=== PATIENT | female | born 1990 | race Two or more races ===

== ENCOUNTER 2024-06-19 17:59 | Observation (INO) | payer MEDICAID, SELFPAY ==
[2024-06-19] VITALS (7 sets, daily range): BP systolic 110–128; BP diastolic 68–83; PULSE 79–98; RESP 16–18; TEMP 37.1–37.4; O2SAT 96–99; BMI 26.3
--- NOTE | 2024-06-19 18:27 | PD.EDRME ---
Rapid Medical Screening Exam RME Arrival date/time: 06/19/24 17:59 Chief Complaint: Abdominal Pain Time Seen by Provider: 06/19/24 18:08 Vital signs: Vital Signs Temperature 99.4 F 06/19/24 18:24 Pulse Rate 94 06/19/24 18:24 Respiratory Rate 16 06/19/24 18:24 Blood Pressure 121/83 06/19/24 18:24 Pulse Oximetry (%) 96 06/19/24 18:24 Oxygen Delivery Method Room Air 06/19/24 18:24 E Narrative: Epigastric pain, nausea x4 days. Patient also reports congestion, cough, body aches.
--- NOTE | 2024-06-19 18:28 | XR_ITS ---
Examination: PA chest single view Technique: Upright PA chest single view Exam date and time: June 2024 1833 hrs. Indications: Coughing wheezing beginning 4 days ago. Findings: Early pneumonia left lower lobe Normal heart size Right lung clear Impression: Early pneumonia left lower lobe
--- NOTE | 2024-06-19 18:29 | XR_ITS ---
Examination: Abdomen sonogram, Limited Date and time of exam: June 19, 2024 1840 hrs. Indications: Right upper abdominal pain epigastric pain with nausea vomiting beginning 4 days ago Technique: Real-time villanueva scale transabdominal sonographic images of the upper abdomen obtained. Findings: Multiple gallstones Gallbladder wall is thickened 0.5 cm Common bile duct 0.3 cm Pancreatic head 2.2 cm Liver 14.2 cm fatty infiltration smooth contour no focal liver lesions Normal hepatopedal portal venous flow Patent IVC Impression: Acute calculus cholecystitis Normal common bile duct
[2024-06-19 18:51] LABS: Basophils # (Auto) 0.1 Thou/mm3 (0.0-0.2); Basophils % (Auto) 0 % (0-2.5); Eosinophils # (Auto) 0.1 Thou/mm3 (0.0-0.5); Eosinophils % (Auto) 0 % (0-10); Hematocrit 41.1 % (36.0-46.0); Hemoglobin 14.6 g/dL (12.0-16.0); Immature Granulocytes % (Auto) 1 % (0-0); Immature Granulocytes Auto 0.12 Thou/mm3 (0.00-0.00); Lymphocytes # (Auto) 2.8 Thou/mm3 (1.0-4.8); Lymphocytes % (Auto) 11 % (10-50); Mean Corpuscular HGB Conc 35.5 g/dl (31.0-37.0); Mean Corpuscular Hemoglobin 29.1 pg (25.0-35.0); Mean Corpuscular Volume 82 fL (80-100); Monocytes # (Auto) 1.9 Thou/mm3 (0.0-0.8); Monocytes % (Auto) 8 % (0-12); Neutrophils # (Auto) 20.5 Thou/mm3 (1.8-7.7); Neutrophils % (Auto) 81 % (37-80); Nucleated Red Blood Cell % 0 /100 WBC (0); Platelet Count 308 Thou/mm3 (140-440); Red Blood Count 5.02 Miln/mm3 (4.00-5.20); White Blood Count 25.4 Thou/mm3 (3.6-11.0)
[2024-06-19 19:12] LABS: Alanine Aminotransferase 48 U/L (10-49); Albumin, Serum 4.9 gm/dL (3.5-5.0); Albumin/Globulin Ratio 1.4 (1.2-2.2); Alkaline Phosphatase 60 U/L (46-116); Anion Gap 12 (7-16); Aspartate Amino Transferase 19 U/L (0-34); BUN/Creatinine Ratio 12 Ratio (12-20); Bilirubin,Total 0.6 mg/dL (0.3-1.2); Blood Urea Nitrogen 7 mg/dL (9-23); Calcium 9.7 mg/dL (8.3-10.6); Calcium (Corrected) 9.7 mg/dL (8.5-10.1); Carbon Dioxide 25.5 mMol/L (20.0-31.0); Chloride 98 mMol/L (98-107); Creatinine (Component) 0.6 mg/dL (0.6-1.3); Estimated Creatinine Clearance 118.3 mL/min (>60); Globulin 3.4 gm/dL (2.3-3.5); Glucose 100 mg/dL (74-106); Lipase 24 U/L (12-53); Osmolality,Calculated 268 (275-295); Potassium 3.3 mMol/L (3.4-5.1); Sodium 135 mMol/L (136-145); Total Protein 8.3 gm/dL (5.7-8.2); eGFR > 60 See Note
[2024-06-19 21:10] LABS: Collection Type, Urine Clean Catch
--- NOTE | 2024-06-19 21:28 | EDNOTE_ITS ---
ED General RME/HPI General Chief complaint: Abdominal Pain Stated complaint: ABD PAIN Time Seen by Provider: 06/19/24 18:08 Arrival date/time: 06/19/24 17:59 RME / HPI RME / HPI narrative: [facility] complaint: Epigastric pain, nausea x4 days, fevers and food intolerance HPI: Patient is a 33-year-old female with no significant past medical history, history of normal vaginal deliveries without complications s/p IUD, who presented to the ED with acute onset abdominal pain. Her pain started on Monday in the right upper quadrant and progressed to epigastric region, with significant nausea and multiple episodes of yellow nonbilious nonbloody vomitus. She describes her pain as 10 out of 10, dull achy in severity and constant. She is unable to assess if pain worsens with food but does endorse worsening with movement. Patient also had subjective fevers and bodyaches since Monday and took Tylenol for it. She has never experienced the symptoms in the past, and is otherwise in fairly good health and active. present at bedside, endorses significant intolerance of food and even liquids. Her last bowel movement was over 48 hours ago, likely due to lack of food consumption. Medication list: None Past surgical history: None Allergies: NKFDA Social history: Marital?Status:? Tobacco?Use:?Denies ETOH?Use:?Denies Drug?Note:?Denies Social?History?Note:?Lives?at home with? and kids Family history: Negative for gastric/colon cancer, no sudden cardiac . L Severity: severe Severity scale (1-10): 10 Quality: aching and dull Related Data Allergies Allergy/AdvReac Type Severity Reaction Status Date / Time No Known Allergies Unknown Uncoded 08/13/15 07:53 Review of Systems Review of Systems Narrative Review of Systems: GENERAL: Denies fevers/chills or diaphoresis. HEENT: Denies headache or visual/hearing changes. Denies nasal discharge. NEURO: Denies unusual weakness or difficulty speaking. CARDIO: Denies chest pain or palpitations. PULM: Denies SOB, coughing, or wheezing. GI: Epigastric abdominal pain, N/V, no C/D. Reports having BMs URO: Denies burning/itching/pain/urinary changes. 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 MSK/EXT/SKIN: Denies joint/skeletal/muscle pain, issues/changes in upper or lower extremities, itchiness, or superficial pain. PSYCH: Cooperative, pleasant mood & affect. The rest of the review of systems is otherwise negative. ED Exam Narrative Physical exam: Constitutional Alert, oriented x3 and in discomfort HEENT Vision grossly intact. Patent nares. Trachea midline. Respiratory Chest normal on inspection and clear to auscultation bilaterally. Cardiovascular S1 and S2 audible, RRR. No murmurs or carotid bruit. No gross JVD. Abdominal Soft, +Conte's sign, severely tender to palpation in RUQ and epigastric region. BS + Genitourinary No bladder tenderness, no flank pain. Normal to palpation. Musculoskeletal Extremities tone within normal limits. No LE edema. Neurological CN II - XII grossly intact. Extremity motor and sensation grossly intact. Skin Warm, dry and intact. No apparent lesions. Psychiatric Patient has a good affect, is cooperative. Course Quality Measures none Orders Category Date Time Status Bedside COVID-19 Antigen Test NOW Care 06/19/24 18:28 Active Bedside Influenza A&B Antigen Test NOW Care 06/19/24 18:29 Completed Consult to General Surgery Stat Cons 06/19/24 21:10 Ordered CXR [XR chest 1V] Stat Exams 06/19/24 18:28 Completed US gall bladder Stat Exams 06/19/24 18:29 Completed CBC Stat Lab 06/19/24 18:37 Completed CMP [Comprehensive Metabolic Panel] Stat Lab 06/19/24 18:37 Completed HCG Qualitative,Urine Stat Lab 06/19/24 21:02 Completed Lipase Stat Lab 06/19/24 18:37 Completed Magnesium Stat Lab 06/19/24 18:37 Completed PTT [Partial Thromboplastin Time] Stat Lab 06/19/24 18:37 Completed Phosphorous Stat Lab 06/19/24 18:37 Completed Prothrombin Time with INR Stat Lab 06/19/24 18:37 Completed UA [Urinalysis] Stat Lab 06/19/24 21:02 Completed Ampicillin/Sulbac Inj [Unasyn Inj] 3 gm Med 06/19/24 21:09 Discontinued Sodium Chloride 0.9% (P) [NS 0.9% mini bag] 100 ml IV X1 Ketorolac Inj [Toradol Inj] Med 06/19/24 21:05 Discontinued 15 mg IVP Q2HR PRN Ketorolac Inj [Toradol Inj] Med 06/19/24 21:25 Discontinued 15 mg IVP X1 ONE Morphine Inj Med 06/19/24 21:05 Discontinued 2 mg IVP Q1H PRN Ondansetron Inj [Zofran Inj] Med 06/19/24 20:58 Discontinued 4 mg IV Q6H PRN Ondansetron Inj [Zofran Inj] Med 06/19/24 21:25 Discontinued 4 mg IV X1 ONE POT PHOS 15 mMol in NS 250 ML [Pot Phos 15 mMol in NS Med 06/19/24 20:59 Discontinued 250 ml] 15 mmol in 250 ml IV X1 Sodium Chloride 0.9% 1000 ml [Ns] 1,000 ml Med 06/19/24 20:59 Discontinued IV 125 mls/hr Vital Signs Vital signs: Vital Signs Temperature 99.4 F 06/19/24 18:24 Pulse Rate 94 06/19/24 18:24 Respiratory Rate 16 06/19/24 18:24 Blood Pressure 121/83 06/19/24 18:24 Pulse Oximetry (%) 96 06/19/24 18:24 Oxygen Delivery Method Room Air 06/19/24 18:24 [facility] Patient data External records reviewed:: None Clinical information provided by:: patient and spouse Social determinants that could affect healthcare access:: none Patient has the following chronic illnesses:: None How is presenting disease/condition affected by chronic disease/condition?: no chronic disease Evaluation data The following diagnostics were reviewed and interpreted by me:: lab results, radiology exam(s), EKG tracing(s) and other (specify) Lab and/or radiology exams considered but not ordered:: MRI Interpretation Summary: Acute CALCULOUS cholecystitis Medications Medications considered but not ordered:: Zosyn Medication administrations:: Medication Administration History Piperacillin/Tazobactam/Dextrose (Zosyn) 3.375 gm in 50 mls @ 12.5 mls/hr IV Q8H [facility] Stop: 06/27/24 06:59 Ketorolac Tromethamine (Ketorolac Inj 30 Mg/Ml Vial) 30 mg IVP Q6HR PRN PRN Reason: PAIN SCALE 4-6 (Moderate Stop: 06/24/24 21:53 Last Admin: 06/20/24 02:20 Dose: 30 mg Documented By: Ondansetron HCl (Ondansetron Inj 2 Mg/Ml Inj 2 Ml) 4 mg IV Q4HR PRN; Protocol PRN Reason: NAUSEA OR VOMITING Stop: 07/19/24 21:59 Discontinued Medications Sodium Chloride (Ns) 1,000 mls @ 125 mls/hr IV .Q8H ONE Stop: 06/20/24 04:58 Last Admin: 06/19/24 22:01 Dose: Not Given Documented By: JAILENE Non-Admin Reason: Discontinued Potassium Phosphate (Pot Phos 15 Mmol In Ns 250 Ml) 15 mmol in 250 mls @ 62.5 mls/hr IV X1 ONE Stop: 06/20/24 00:58 Last Admin: 06/19/24 21:57 Dose: Not Given Documented By: JAILENE Non-Admin Reason: Discontinued Ampicillin Sodium/Sulbactam (Sodium 3 gm/ Sodium Chloride) 100 mls @ 200 mls/hr IV X1 ONE Stop: 06/19/24 21:10 Last Admin: 06/19/24 21:58 Dose: Not Given Documented By: JAILENE Non-Admin Reason: Discontinued Piperacillin/Tazobactam/Dextrose (Zosyn) 50 mls @ 100 mls/hr IV X1 ONE Stop: 06/19/24 22:23 Last Infusion: 06/19/24 22:58 Dose: Infused Documented By: Admin: 06/19/24 22:16 Dose: 100 mls/hr Documented By: JAILENE Sodium Chloride (Ns) 500 mls @ 999 mls/hr IV .Q31M ONE Stop: 06/19/24 22:29 Last Infusion: 06/19/24 22:59 Dose: Infused Documented By: Admin: 06/19/24 22:15 Dose: 999 mls/hr Documented By: JAILENE Ketorolac Tromethamine (Ketorolac Inj 30 Mg/Ml Vial) 15 mg IVP Q2HR PRN PRN Reason: pain 3-6 Stop: 06/24/24 21:59 Ketorolac Tromethamine (Ketorolac Inj 30 Mg/Ml Vial) 15 mg IVP X1 ONE Stop: 06/19/24 21:26 Last Admin: 06/19/24 22:14 Dose: 15 mg Documented By: JAILENE Morphine Sulfate (Morphine Sulf Inj 10 Mg/Ml Vial) 2 mg IVP Q1H PRN PRN Reason: pain 7-10 Stop: 06/24/24 21:14 Ondansetron HCl (Ondansetron Inj 2 Mg/Ml Inj 2 Ml) 4 mg IV Q6H PRN; Protocol PRN Reason: nausea or vomiting Stop: 07/19/24 20:59 Ondansetron HCl (Ondansetron Inj 2 Mg/Ml Inj 2 Ml) 4 mg IV X1 ONE; Protocol Stop: 06/19/24 21:26 Last Admin: 06/19/24 22:14 Dose: 4 mg Documented By: KD Continue Consultations Consultation(s) initiated? (list below): Yes Consultation #1 (Physician, Specialty, Details): 9:[address] Ross is consulted for possible laparascopic shaye intervention in the morning. Diagnosis Differential Diagnosis ED Complaint MDM: SBO ruled out Most likely diagnosis given after review of the tests above:: Acute CALCULOUS cholecystitis Admission Indicated Admission indicated?: indicated Explain why admission is indicated or not indicated:: Acute CALCULOUS cholecystitis , on IV antibiotics Plan : Gen surg consulted, will evaluate in the morning. Keep pt NPO after midnight. Admission Request Was there a request for admission?: Yes Disposition Plan Disposition Plan: Admit Medical Decision Making Differential Diagnosis Differential Diagnosis: SBO ruled out Lab Data 06/19/24 18:37 06/19/24 18:37 Labs: Lab Results 06/19/24 06/19/24 Range/Units 18:37 21:02 WBC 25.4 H (3.6-11.0) Thou/mm3 RBC 5.02 (4.00-5.20) Miln/mm3 Hgb 14.6 (12.0-16.0) g/dL Hct 41.1 (36.0-46.0) % MCV 82 (80-100) fL MCH 29.1 (25.0-35.0) pg MCHC 35.5 (31.0-37.0) g/dl RDW Std Deviation 38.0 (36.4-46.3) fL Plt Count 308 (140-440) Thou/mm3 Neut % (Auto) 81 H (37-80) % Lymph % (Auto) 11 (10-50) % [place] % (Auto) 8 (0-12) % Eos % (Auto) 0 (0-10) % Baso % (Auto) 0 (0-2.5) % Neut # (Auto) 20.5 H (1.8-7.7) Thou/mm3 Lymph # (Auto) 2.8 (1.0-4.8) Thou/mm3 [place] # (Auto) 1.9 H (0.0-0.8) Thou/mm3 Eos # (Auto) 0.1 (0.0-0.5) Thou/mm3 Baso # (Auto) 0.1 (0.0-0.2) Thou/mm3 Immature Gran # (Auto) 0.12 H (0.00-0.00) Thou/mm3 Absolute Nucleated RBC 0.00 (0.00-0.00) Thou/mm3 Immature Gran % 1 H (0-0) % Nucleated RBC % 0 (0) /100 WBC PT 11.5 (9.0-12.2) Seconds INR 1.1 (0.9-1.3) APTT 32.9 (22.0-36.0) Seconds Sodium 135 L (136-145) mMol/L Potassium 3.3 L (3.4-5.1) mMol/L Chloride 98 (98-107) mMol/L Carbon Dioxide 25.5 (20.0-31.0) mMol/L Anion Gap 12 (7-16) BUN 7 L (9-23) mg/dL Creatinine 0.6 (0.6-1.3) mg/dL Estim Creat Clear Calc 118.3 (>60) mL/min eGFR > 60 (60 - ) See Note BUN/Creatinine Ratio 12 (12-20) Ratio Glucose 100 (74-106) mg/dL Calculated Osmolality 268 L (275-295) Calcium 9.7 (8.3-10.6) mg/dL Corrected Calcium 9.7 (8.5-10.1) mg/dL Phosphorus 2.7 (2.4-5.1) mg/dL Magnesium 2.1 (1.6-2.6) mg/dL Total Bilirubin 0.6 (0.3-1.2) mg/dL AST 19 (0-34) U/L ALT 48 (10-49) U/L Alkaline Phosphatase 60 (46-116) U/L Total Protein 8.3 H (5.7-8.2) gm/dL Albumin 4.9 (3.5-5.0) gm/dL Globulin 3.4 (2.3-3.5) gm/dL Albumin/Globulin Ratio 1.4 (1.2-2.2) Lipase 24 (12-53) U/L Ur Collection Type Clean Catch Urine Color Yellow (Lt Yel-Yel) Urine Clarity Hazy (Clear/Hazy) Urine pH 6.0 (5.0-7.0) Ur Specific [place] 1.035 (1.001-1.035) Urine Protein 1+ A (Neg - Trace) Urine Glucose (UA) Negative (Negative) Urine Ketones 4+ A (Negative) Urine Blood 2+ A (Negative) Urine Nitrite Negative (Negative) Urine Bilirubin Negative (Negative) Urine Urobilinogen (Auto) 2.0 (0.0-1.0) mg/dL Ur Leukocyte Esterase Positive (Negative) Urine RBC 17 H (0-3) /hpf Urine WBC 7 H (0-5) /hpf Ur Squamous Epith Cells 13 H (0-5) /hpf Urine Bacteria Rare (None) Urine HCG, Qual Negative Discharge Plan Plan Patient Disposition: Admit Acute Care w/in Hospital Patient condition on transfer: Stable Problem List Clinical Impression: Acute cholecystitis due to biliary calculus
[2024-06-19 21:37] LABS: Magnesium 2.1 mg/dL (1.6-2.6); Phosphorous 2.7 mg/dL (2.4-5.1)
[2024-06-19 21:47] LABS: Bacteria,Urine Rare; Bilirubin,Urine Negative (Negative); Blood,Urine 2+ (Negative); Color,Urine Yellow (Lt Yel-Yel); Glucose, Urine Negative (Negative); Ketones,Urine 4+ (Negative); Leukocyte Esterase,Urine Positive (Negative); Nitrite,Urine Negative (Negative); Protein,Urine 1+ (Neg - Trace); RBC,Urine 17 /hpf (0-3); Specific Gravity,Urine 1.035 (1.001-1.035); Squamous Epithelial Cell,Urine 13 /hpf (0-5); WBC,Urine 7 /hpf (0-5)
[2024-06-19 21:50] LABS: Clarity,Urine Hazy (Clear/Hazy)
[2024-06-19 21:58] LABS: HCG Qualitative,Urine Negative
--- NOTE | 2024-06-19 22:09 | EKG_ITS ---
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
[2024-06-19] MEDS: ONDANSETRON INJ 2 MG/ML INJ 2 ML 4 MG IV (22:14)
[2024-06-19] MEDS: KETOROLAC INJ 30 MG/ML VIAL 15 MG IVP (22:14)
[2024-06-19] MEDS: SODIUM CHLORIDE 0.9% 500 ML 500 ML 999 ML IV (22:15)
[2024-06-19] MEDS: PIPER/TAZO 3.375 GM 50 ML IV (22:16)
[2024-06-19 22:59] LABS: INR 1.1 (0.9-1.3); Partial Thromboplastin Time 32.9 Seconds (22.0-36.0); Prothrombin Time 11.5 Seconds (9.0-12.2)
[2024-06-20] VITALS (14 sets, daily range): BP systolic 100–127; BP diastolic 65–85; PULSE 66–93; RESP 15–95; TEMP 36.1–36.7; O2SAT 95–100; BMI 26.3; BMI 26.8
--- NOTE | 2024-06-20 00:32 | PC.NURSE ---
REPORT CALLED TO GISSELLE GALINDO. ALL QUESTIONS ASKED AND ANSWERED. PATIENT TRANSFERRED TO FLOOR BY STAFF NO DISTRESS NOTED AT TRANSFER. PATIENT REMAINS ON ROOM AIR.
--- NOTE | 2024-06-20 00:35 | PC.NURSE ---
report received from Sunita PITTS.
[2024-06-20] MEDS: KETOROLAC INJ 30 MG/ML VIAL IVP ×2 (02:20→19:19)
[2024-06-20] MEDS: PIPER/TAZO 3.375 GM 3.375 GM/50 ML BAG IV ×3 (08:04→22:22)
[2024-06-20] MEDS: MORPHINE SULF INJ 10 MG/ML VIAL 3 MG IVP (08:04)
--- NOTE | 2024-06-20 08:49 | ESHP_ITS ---
HPI Date of Admission 06/19/24 21:54 Chief Complaint Chief Complaint: Patient is admitted with a diagnosis of acute cholecystitis and cholelithiasis HPI History of present elevated the patient was in her usual health until Monday when she started the pain in the epigastric region associated with vomiting. She could not eat. She could not sleep. But she thought it is flu and did not go to the doctor. 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 She has noticed fever and chills. She has had a normal bowel movement on Monday but nothing afterwards. She denies any such pain in the past even though she might of had some occasional indigestion. Patient denies any history of gallstones in the family. She is and has 2 children. Past Medical History Past Medical History CARDIAC: Negative Congestive Heart Failure RESPIRATORY: Negative Chronic Obstructive Pulmonary Disease (COPD) GENITOURINARY: Negative Renal Disease ENDOCRINE: Negative Diabetes Mellitus Type 1 or Diabetes Mellitus Type 2 Social History SMOKING STATUS: Never smoker SECOND HAND EXPOSURE: No Meds Home Medications and Allergies Allergies Allergy/AdvReac Type Severity Reaction Status Date / Time No Known Allergies Unknown Uncoded 08/13/15 07:53 Exam Vital Signs Temp Pulse Resp BP Pulse Ox O2 Del Method 97.3 F 80 16 106/68 99 Room Air 06/20/24 08:00 06/20/24 08:00 06/20/24 08:00 06/20/24 08:00 06/20/24 08:00 06/20/24 08:00 Narrative Exam Physical examination revealed a thin built female who is 5 foot 2 inches tall weighing 146 pounds Constitutional Constitutional: severe distress Routine Abdominal Exam Comments: Abdominal examination revealed epigastric tenderness but and right upper quadrant tenderness with a positive Conte sign Results Results: Laboratory Laboratory Narrative: Patient's laboratory workup showed leukocytosis of 25,000. Liver enzymes are normal. Results: Imaging Imaging narrative: Patient had ultrasound of the gallbladder which showed gallstones with acute cholecystitis Assessment & Plan Additional Assessment Additional comments: Impression: Acute calculus cholecystitis Plan Plan: Advised the patient to undergo laparoscopic cholecystectomy. Since she is 4 days after the pain started it may be difficult to do the laparoscopic approach. She may end up requiring open approach. Other complications and risks like trocar related injury to the bowel and common bile duct injury requiring further surgery in the tertiary [facility] was explained to her and the . Patient also was told about the need for open cholecystectomy in case the laparoscopic approach fails. She is agreeable to proceed with the surgery. Quality Measures Quality Measures none
[2024-06-20] MEDS: SODIUM CHLORIDE 0.9% 1000 ML 1,000 ML 125 ML IV ×2 (09:33→16:19)
[2024-06-20] MEDS: ONDANSETRON INJ 2 MG/ML INJ 2 ML 4 MG IV ×2 (10:41→13:04)
[2024-06-20] MEDS: ACETAMINOPHEN IVPB 1,000 MG/100 ML VIAL 250 MG IV ×3 (10:41→21:57)
--- NOTE | 2024-06-20 12:49 | ESOP_ITS ---
Date of Procedure 06/20/24 Pre Op Diagnosis Acute calculus cholecystitis Post Op Diagnosis Same Procedure Laparoscopic cholecystectomy Findings Patient was found to have distended and thickened gallbladder wall with multiple large stones Procedure Description After endotracheal anesthesia was given the patient was placed in supine position and the abdomen was prepped with chloroprep solution and draped in a sterile manner. After time out was performed I injected a few cc of of half percent Marcaine with epinephrine below the umbilicus and I made an incision for about 3 cm in length. The fascia was cleaned and Veress needle was inserted to create a pneumoperitoneum up to 15 mmHg. Then introduced a 12 mm trocar and a 10 mm camera through the fascia and I inspected the intra-abdominal organs as well as the gallbladder and the liver. Another 5 mm trocar was inserted in the epigastric region under direct vision after injecting some local anesthesia. At this time the patient was kept in reverse Trendelenburg position with the left lateral tilt. The third 5 mm trocar was inserted over the mid axillary line under direct vision and a Jose and Yesenia grasper was used to hold the fundus of the gallbladder. The retraction was carried out by the entry level administrative assistant moving the fundus of the gallbladder towards the right shoulder of the patient to create enough traction. I placed a another 5 mm trocar in the midaxillary line just lateral to the rectus muscle under direct vision. I used a fenestrated grasper to retract the neck of the gallbladder laterally towards the patient's right hip. The Calot's triangle was exposed and I achieved the critical view of safety as follows: I dissected out the fatty tissue from the hepatocystic triangle and cleared this area. I also dissected inferior and posterior to the gallbladder to identify the cystic duct and the gallbladder wall. Then superiorly I dissected along the cystic plate up to lower one third third of the gallbladder to lift the gallbladder from the liver. At this time I confirmed that only 2 structures entering the gallbladder were cystic artery and the cystic duct. The common duct was seen distally but no dissection was carried out around the duct. I did not see any need for operative cholangiogram in this patient. The cystic duct was clipped doubly and then divided and cystic artery was similarly dealt with. Then the gallbladder was removed from the liver bed using Harmonic tisha to control the small blood vessels as the dissection proceeded. Then the gallbladder was from the liver bed completely and delivered through the umbilical port using an Endopouch. The liver bed was coagulated with cautery to obtain satisfactory hemostasis. The trocars were pulled out from the abdominal cavity and the fascia at the umbilical incision was closed with interrupted 0 Ethibond. Subcutaneous tissues was closed with 3- 0 chromic and injected a few cc of half percent Marcaine with epinephrine and the skin was closed with interrupted 4-0 Monocryl subcuticular stitches at all the trocar sites. Dressing was applied with 2 x 2 and Tegaderm. Patient tolerated the procedure well and returned to recovery room in stable condition. Anesthesia GETA Pathology / specimen Other IVF Infused 400 Estimated Blood Loss 40 Condition Stable Disposition PACU Surgeon Tara Ross MD Surgical Staff Operation Date: 06/20/24 11:45 Case Staff Anesthesiologist: Steven Buitrago RN First Assistant: Ann Marie Davis
--- NOTE | 2024-06-20 12:57 | SUR.PHASEI ---
pt received from OR in recovery bay 5. pt asleep but responds to voice, breathing unlabored on oxymask 8l. v/s stable. pt dressing to abd x4 cdi. report received from Dr. Buitrago and Stephani PITTS.
--- NOTE | 2024-06-20 13:12 | PC.SS ---
Patient is alert/oriented. She resides with her family. Patient was admitted for cholecystitis. She is independent with ADL's. Patient states she's npo for surgery at 11a.m. Patient follows with [facility]. She does walk in only. Not established with a p.c.p. Her alt designated decision maker is her partner, Truong. Patient pharmacy: [facility]. Family will provide transportation home. D/c plan: home
[2024-06-20] MEDS: PROMETHAZINE INJ 12.5 MG in SODIUM CHLORIDE 0.9% 50 ML 2.5 MG IV (13:23)
--- NOTE | 2024-06-20 14:05 | SUR.PHASEI ---
pt awake and alert, breathing unlabored on room air. v/s stable. pt dressing to abd x4 cdi. report called to shantelle leong. pt will be transferred to room at this time.
--- NOTE | 2024-06-20 16:32 | PC.NURSE ---
Patient to surgery for laparoscopic cholecystectomy via gurney around 11:15 AM.
--- NOTE | 2024-06-20 16:32 | PC.NURSE ---
Patient back to med surg unit after surgery via gurney around 14:20PM.
[2024-06-21] MEDS: SODIUM CHLORIDE 0.9% 1000 ML 1,000 ML 125 ML IV (01:27)
[2024-06-21] MEDS: KETOROLAC INJ 30 MG/ML VIAL IVP ×2 (01:29→11:11)
[2024-06-21 01:35] VITALS: RESP 97
[2024-06-21 04:00] VITALS: BP 105/78; PULSE 71; RESP 18; TEMP 36.4; O2SAT 96
[2024-06-21] MEDS: ACETAMINOPHEN IVPB 1,000 MG/100 ML VIAL 250 MG IV (04:19)
[2024-06-21 05:45] LABS: Basophils % (Auto) 0 % (0-2.5); Eosinophils % (Auto) 0 % (0-10); Hematocrit 33.7 % (36.0-46.0); Hemoglobin 11.9 g/dL (12.0-16.0); Immature Granulocytes % (Auto) 1 % (0-0); Immature Granulocytes Auto 0.11 Thou/mm3 (0.00-0.00); Lymphocytes # (Auto) 1.6 Thou/mm3 (1.0-4.8); Lymphocytes % (Auto) 10 % (10-50); Mean Corpuscular HGB Conc 35.3 g/dl (31.0-37.0); Mean Corpuscular Hemoglobin 29.2 pg (25.0-35.0); Mean Corpuscular Volume 83 fL (80-100); Monocytes # (Auto) 0.8 Thou/mm3 (0.0-0.8); Monocytes % (Auto) 5 % (0-12); Neutrophils # (Auto) 13.4 Thou/mm3 (1.8-7.7); Neutrophils % (Auto) 84 % (37-80); Nucleated Red Blood Cell % 0 /100 WBC (0); Platelet Count 252 Thou/mm3 (140-440); RDW Standard Deviation 38.9 fL (36.4-46.3); Red Blood Count 4.07 Miln/mm3 (4.00-5.20); White Blood Count 15.9 Thou/mm3 (3.6-11.0)
[2024-06-21] MEDS: PIPER/TAZO 3.375 GM 3.375 GM/50 ML BAG IV (06:09)
[2024-06-21 07:46] VITALS: PULSE 82; RESP 16; RESP 97
[2024-06-21 08:00] VITALS: BP 96/56; PULSE 69; RESP 16; TEMP 36.2; O2SAT 97
--- NOTE | 2024-06-21 10:05 | ESPR_ITS ---
Documentation for date of: 06/21/24 Subjective Subjective Brief History: History of present elevated the patient was in her usual health until Monday when she started the pain in the epigastric region associated with vomiting. She could not eat. She could not sleep. But she thought it is flu and did not go to the doctor. 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 She has noticed fever and chills. She has had a normal bowel movement on Monday but nothing afterwards. She denies any such pain in the past even though she might of had some occasional indigestion. Patient denies any history of gallstones in the family. She is and has 2 children. Narrative: Patient is doing well and tolerating diet. She has passed flatus and had a bowel movement Exam Vital Signs Temp Pulse Resp BP Pulse Ox O2 Del Method O2 Flow Rate 97.1 F 69 16 96/56 L 97 Room Air 8 06/21/24 08:00 06/21/24 08:00 06/21/24 08:00 06/21/24 08:00 06/21/24 08:00 06/21/24 08:00 06/20/24 13:05 Her vital signs are normal Routine Abdominal Exam Comments: Abdominal examination is negative Results Results: Laboratory Laboratory Narrative: WBC is down to 15,000 Assessment & Plan Assessment Additional comments: Impression: Stable postoperative course following laparoscopic cholecystectomy Plan Plan: We shall discharge patient today. Procedures Procedures Laparoscopic cholecystectomy
[2024-06-21 12:00] VITALS: BP 115/78; PULSE 78; RESP 17; TEMP 36.2; O2SAT 95
== END 2024-06-21 13:41 | disposition home or self-care (01) ==
LOC: SERX 21:41 → SERHOLD 22:21 → S3SX 06-20 07:07 → SERHOLD 06-20 09:00
PROVIDERS: Physician Assistant; Student in an Organized Health Care Education/Training Program; Admitting Provider Surgery; Emergency Provider Emergency Medicine; PCP Physician Assistant; Visit Provider Surgery
PROC: 0FT44ZZ Resection of Gallbladder, Percutaneous Endoscopic Approach (ICD-10-PCS; CPT 47562; principal; 2024-06-20 11:30)
DX: K80.12 Calculus of gallbladder with acute and chronic cholecystitis without obstruction (principal)
CPT/HCPCS: 47562; 36415; 71045; 76705; 80053; 81001; 81025; 83690; 83735; 84100; 85025; 85610; 85730; 87400; 87811; 93005; 96361; 96365; 96366; 99285; A4217; A4649; G0378; J0131; J1100; J1885; J2250; J2270; J2405; J2543; J2550; J2704; J3010; J3490; J7030; J7040

== ENCOUNTER 2025-02-26 16:42 | Emergency (ER) | payer MEDICAID, SELFPAY ==
[2025-02-26 17:24] VITALS: BP 126/75; PULSE 72; RESP 16; TEMP 36.9; O2SAT 95; BMI 27.4
[2025-02-26] MEDS: IBUPROFEN TAB 600 MG TABLET PO (17:47)
[2025-02-26] MEDS: LIDOCAINE HCL 1% 20 ML VIAL INFL (18:00)
--- NOTE | 2025-02-26 18:10 | XR_ITS ---
Examination: Toes, right foot fifth digit Technique: Toes AP oblique lateral 3 views right foot fifth digit Date and time of exam: February 26, 2025, 1814 hrs. Indications: Dislocation at the interphalangeal joint right fifth digit on plain films 02/26/2025 1608 hrs. Post reduction films Findings: Significant improvement in alignment at the interphalangeal joint fifth digit No fracture Impression: Significant improvement in alignment at the interphalangeal joint fifth digit
--- NOTE | 2025-02-26 18:11 | EDNOTE_ITS ---
Lower Extremity Injury RME/HPI General Chief Complaint: Extremity Injury, Lower Stated Complaint: RIGHT PINKY TOE DISLOCATION Time Seen by Provider: 02/26/25 17:58 Arrival date/time: 02/26/25 16:42 RME / HPI RME / HPI Narrative: 34-year-old female patient was sent to us by PCP for possible subluxation right fifth to PIP area. Patient accidentally stabbed her right pinky toe with hard object last night. Went to PCP and x-ray was done and showed possible dislocation subluxation PIP 5th toe. Patient complained of pain described as dull ache severity mild. Patient is ambulatory. Related Data Previous Rx's ?Medication ?Instructions ?Recorded hydrocodone 5 mg-acetaminophen 325 1 tab PO Q6H #20 ta bs 06/21/24 mg tablet Allergies Allergy/AdvReac Type Severity Reaction Status Date / Time No Known Allergies Allergy Unverified 06/20/24 10:30 Review of Systems Review of Systems Narrative Review of Systems: Review of system reviewed and within normal limits except mentioned in HPI ED Exam Narrative Physical exam: VITAL SIGNS: Reviewed. GENERAL APPEARANCE: Alert and interactive, follows commands, no acute distress, HEAD AND FACE: Non-traumatic. ENT: PERRL, pink conjunctivitis, eyelid no trauma, Mucous membrane moist. NECK: Supple, nontender, no nuchal rigidity. RECTAL: Deferred. GENITAL: Deferred. NEUROLOGICAL: Gross motor function intact sensory function intact, Appropriate for age. MUSCULOSKELETAL: low back nontender, full range of motion. EXTREMITIES: + Right fifth toe PIP dislocation, full range of motion. SKIN: Color pink, dry, no rash, no lacerations, no abrasions, no contusions. LYMPHATICS: Deferred. Course Quality Measures none Orders Category Date Time Status XR toe RT min 2V Stat Exams 02/26/25 18:10 Completed Ibuprofen Tab [Motrin Tab] Med 02/26/25 17:37 Discontinued 600 mg PO X1 ONE Lidocaine 1% 20 ml [Xylocaine 1% 20 ML] Med 02/26/25 17:37 Discontinued 20 ml INFL X1 ONE Vital Signs Vital signs: Vital Signs Temperature 98.4 F 02/26/25 17:24 Pulse Rate 72 02/26/25 17:24 Respiratory Rate 16 02/26/25 17:24 Blood Pressure 126/75 02/26/25 17:24 Pulse Oximetry (%) 95 02/26/25 17:24 Oxygen Delivery Method Room Air 02/26/25 17:24 Extremity Injury, Lower [facility] Narrative [facility] Narrative:: 34-year-old female patient was sent to us by PCP for possible subluxation right fifth toe PIP area. Patient accidentally stabbed her right pinky toe with hard object last night. Went to PCP and x-ray was done and showed possible dislocation subluxation PIP 5th toe. Patient complained of pain described as dull ache severity mild. Patient is ambulatory. Digital block was done by me, aseptically. Dislocation was reduced by me, postreduction x-ray showed significant reduction. Shari taping was done. Patient stable discharge home. Right foot was placed on a Ortho shoe Patient data External records reviewed:: None Clinical information provided by:: patient Social determinants that could affect healthcare access:: none Patient has the following chronic illnesses:: none How is presenting disease/condition affected by chronic disease/condition?: no chronic disease Evaluation data The following diagnostics were reviewed and interpreted by me:: radiology exam(s) Lab and/or radiology exams considered but not ordered:: none Interpretation Summary: See results [facility] Medications / Prescriptions Medications or Prescriptions considered but not ordered:: none Medication administrations:: Medication Administration History Discontinued Medications Ibuprofen (Ibuprofen Tab 600 Mg Tablet) 600 mg PO X1 ONE Stop: 02/26/25 17:38 Last Admin: 02/26/25 17:47 Dose: 600 mg Documented By: ALICIA Lidocaine HCl (Lidocaine Hcl 1% 20 Ml Vial) 20 ml INFL X1 ONE Stop: 02/26/25 17:38 Last Admin: 02/26/25 18:00 Dose: 20 ml Documented By: ALICIA Comments: USED BY PROVIDER Motrin Consultations Consultation(s) initiated? (list below): No Diagnosis Extremity Injury, Lower Differential Diagnosis: fracture of toe and other (Right metatarsal phalangeal dislocation 5th toe) Most likely diagnosis given after review of the tests above:: Right metatarsal phalangeal dislocation 5th toe Admission Indicated Admission indicated?: not indicated Explain why admission is indicated or not indicated:: Stable Admission Request Was there a request for admission?: No Disposition Plan Disposition Plan: Discharge Discharge Attestation Discharge Attestation: The patient and all family members were given an opportunity to ask questions and understood the discharge instructions. Discharge instructions specifically effects, indications for sooner follow up or return to the emergency department, and the expected course of current diagnosis. Patient condition: Stable Discharge Plan Plan Patient Disposition: HOME (Self Care) Discharge Disposition comment: Stable Prescriptions/Referrals Prescriptions/Med Rec: No Action hydrocodone-acetaminophen 5-325 mg tablet 1 tab PO Q6H MDD 4 Qty: 20 0RF Referrals: No Primary/Family,Physician [Primary Care Provider] - In 1 week Problem List Clinical Impression: Dislocation of toe Patient/Caregiver Discharge Instructions Discharge Activity: activity as tolerated Education Materials: ED Toe Dislocation Additional Instructions: Thank you for the opportunity for serving you today. You are stable for discharged . You are advised to: Follow-up with your PCP in 1 to 2 days Return to ED for worsening of symptoms Increase oral fluids Take [id number] Tylenol Motrin as needed for pain Continue your shari tape for the next 2 weeks Wear your Ortho shoe for the next 2 weeks Print Language: [place] Stand Alone Forms: Brisa Award Info., Work/School Release, Patient Portal Info Letter
== END 2025-02-26 19:08 | disposition home or self-care (01) ==
PROVIDERS: Emergency Provider Emergency Medicine
DX: S93.104A Unspecified dislocation of right toe(s), initial encounter (principal); W22.8XXA Striking against or struck by other objects, initial encounter
CPT/HCPCS: 73660; 99283; J3490; A9270

== ENCOUNTER → 2025-02-26 | Outpatient (CLI) | payer MEDICAID, SELFPAY ==
--- NOTE | 2025-02-26 12:51 | XR_ITS ---
Examination: Foot, right, 3 views Technique: AP, oblique, lateral views foot, 3 views Date and time of exam: February 26, 2025 1305 hours INDICATIONS: Injury to the foot today, foot pain. FINDINGS: Dislocation at the interphalangeal joint fifth digit No fracture No foreign body IMPRESSION: Dislocation at the interphalangeal joint fifth digit
== END | disposition home or self-care (01) ==
PROVIDERS: PCP Family Medicine; Referring Provider Family Medicine; Visit Provider Family Medicine
DX: S93.114A Dislocation of interphalangeal joint of right lesser toe(s), initial encounter (principal); X58.XXXA Exposure to other specified factors, initial encounter
CPT/HCPCS: 73630